=== PATIENT | female | born 1940 | race Caucasian/White ===

== ENCOUNTER 2021-04-30 15:30 | Emergency (ER) | payer MEDICARE ==
[~2021-04-30 15:30] MED LIST: ASPIR 8181 MG PO; ASPIRIN CHEWABL81 MG PO; BETAPACE 80MG T80 MG PO; ELIQUIS2.5 MG PO; GABAPENTIN400 MG PO; KEFLEX500 MG PO; LIPITOR40 MG PO; MECLIZINE HCL25 MG PO; METOPROLOL SUCC50 MG PO; NORVASC5 MG PO; SOTALOL120 MG PO; TYLENOL WITH C1 EACH PO
[2021-04-30 16:45] LABS: HEMOGLOBIN 11.4 gm/dl (12.3-15.3); RED BLOOD COUNT 3.74 M/UL (4.00-5.10); WHITE BLOOD COUNT 7.1 K/UL (4.5-11.0)
[2021-04-30] MEDS ORDERED: CEPHALEXIN500 MG PO (18:28)
[2021-04-30] MEDS ORDERED: LASIX20 MG PO (18:28)
[2021-04-30] MEDS ORDERED: ANTIBIOTIC28.4 GM TP (18:31)
== END 2021-04-30 18:44 | disposition home or self-care (01) ==
LOC: ER1 15:30
PROVIDERS: Family Medicine
DX: L89.899 Pressure ulcer of other site, unspecified stage (principal); E66.01 Morbid (severe) obesity due to excess calories; Z79.01 Long term (current) use of anticoagulants; I25.10 Atherosclerotic heart disease of native coronary artery without angina pectoris; E78.5 Hyperlipidemia, unspecified; I48.91 Unspecified atrial fibrillation; I10 Essential (primary) hypertension; Z79.82 Long term (current) use of aspirin; Z95.0 Presence of cardiac pacemaker
CPT/HCPCS: 73590; 80053; 85025; 86140; 99283

== ENCOUNTER → 2021-05-13 | Outpatient (CLI) | payer MEDICARE ==
[~2021-05-13] MED LIST changes: +ANTIBIOTIC28.4 GM TP; +CEPHALEXIN500 MG PO; +LASIX20 MG PO
== END ==
LOC: WCC 08:14
DX: S80.821A Blister (nonthermal), right lower leg, initial encounter (principal); R60.0 Localized edema; I48.91 Unspecified atrial fibrillation; I10 Essential (primary) hypertension; E66.01 Morbid (severe) obesity due to excess calories
CPT/HCPCS: G0463